=== PATIENT | male | born 1970 | race Caucasian/White ===

== ENCOUNTER 2019-01-04 09:50 | Observation (INO) | payer BC ==
[2019-01-04] MEDS ORDERED: Sodium Chloride 0.9% 10 ML FLUSH Syringe IV PRN (10:15)
[2019-01-04] MEDS ORDERED: Lasix 20 MG/2 ML IV SCH (10:30)
[2019-01-04] MEDS ORDERED: Lotensin 10 MG PO SCH (10:30)
[2019-01-04 10:54] LABS: Hematocrit 44.7 % (42-50); Hemoglobin 14.8 gm/dl (12.5-18.0); Mean Cell Volume 85.6 fl (78-100); Mean Corpuscular Hemoglobin 28.4 pg (26-32); Mean Corpuscular Hgb Concent. 33.1 g/dl (32-36); Mean Platelet Volume 10.1 fl (6-9.5); Platelet Count 255 K/mm3 (150-450); Red Blood Count 5.22 M/mm3 (4.1-5.6); White Blood Count 10.1 K/mm3 (4.0-10.5)
[2019-01-04 11:15] LABS: ALBUMIN 3.9 g/dL (3.5-5.0); BILIRUBIN,TOTAL 1.5 mg/dL (0.2-1.3); Calcium 9.4 mg/dL (8.4-10.2); Creatinine 1 2.34 mg/dL (0.66-1.25); Potassium 4.4 mmol/L (3.5-5.1); Total Protein 7.3 g/dL (6.3-8.2)
[2019-01-04 12:32] LABS: Appearance SLIGHTLY CLOUDY (CLEAR); Bilirubin NEGATIVE (NEGATIVE); Blood SMALL Ery/ul (0-5); Glucose NEGATIVE (NEGATIVE); Ketones NEGATIVE (NEGATIVE); Leukocyte Esterase NEGATIVE (NEGATIVE); Mucus SLIGHT /HPF (NEGATIVE); Nitrite NEGATIVE (NEGATIVE); Protein,Urine Dip >=500 (Negative); Specific Gravity 1.015 (1.005-1.025); Urobilinogen NEGATIVE mg/dL (0-1)
--- NOTE | 2019-01-04 13:13 | XRAY ---
Exam: Two-view chest from 01/04/2019. Comparison: None. Indication: 48-year-old male with hypertension/water retention. Findings: Upright PA and 2 lateral chest films are submitted for evaluation. The transverse heart size is borderline enlarged. There is moderate tortuosity of the mid descending thoracic aorta. The neha and mediastinal structures reveal no abnormal lymphadenopathy. There is slight vascular prominence within the neha. No pulmonary vascular redistribution to the upper lung garcia is seen. However, I believe there is a small amount of pleural fluid blunting the right lateral and posterior lung sulci. There also appears to be some mild transversely oriented subsegmental atelectasis within both posterior lung bases. No air space infiltrates or pneumothorax is seen. The left costophrenic angle appears unremarkable. Mild vertebral endplate spurring is seen within the lower thoracic and upper lumbar spine. There appears to be an old healed fracture deformity of the lateral aspect of the right fifth rib. Impression: 1. Borderline cardiomegaly, mild bilateral perihilar vascular prominence, with small right basilar pleural effusion. This could be due to mild fluid volume overload or mild CHF. Correlate clinically. 2. In addition, I believe there is some minimal subsegmental atelectasis at both posterior lung bases. No air space infiltrates are seen.
[2019-01-04] MEDS: Trandate 100 MG PO SCH (20:15)
[2019-01-04] MEDS: LASIX 20 MG PO SCH (20:15)
[2019-01-04] MEDS: Zestril 20 MG PO SCH (20:15)
[2019-01-04] MEDS ORDERED: Sodium Chloride 0.9% 1000 ML 1,000 ML ONE (21:10)
[2019-01-05] MEDS: Trandate 100 MG PO SCH ×2 (00:31→10:42)
[2019-01-05] MEDS: Sodium Chloride 0.9% 10 ML FLUSH Syringe IV SCH ×3 (00:31→08:37)
[2019-01-05 06:04] LABS: Hematocrit 41.6 % (42-50); Hemoglobin 13.4 gm/dl (12.5-18.0); Mean Cell Volume 87.4 fl (78-100); Mean Corpuscular Hemoglobin 28.2 pg (26-32); Mean Corpuscular Hgb Concent. 32.2 g/dl (32-36); Mean Platelet Volume 10.1 fl (6-9.5); Platelet Count 234 K/mm3 (150-450); Red Blood Count 4.76 M/mm3 (4.1-5.6); Red Cell Distribution Width 15.1 % (11.5-14.0); White Blood Count 8.4 K/mm3 (4.0-10.5)
[2019-01-05 06:46] LABS: ALBUMIN 3.5 g/dL (3.5-5.0); ANION GAP 13.6 MEQ/L (5-15); BILIRUBIN,TOTAL 1.4 mg/dL (0.2-1.3); Calcium 8.8 mg/dL (8.4-10.2); Creatinine 1 2.21 mg/dL (0.66-1.25); MAGNESIUM 2.2 mg/dL (1.6-2.3); Potassium 3.5 mmol/L (3.5-5.1); Total Protein 6.5 g/dL (6.3-8.2)
--- NOTE | 2019-01-05 08:58 | CONS ---
CONSULT DATE: 01/04/2019 REASON FOR CONSULT: Increased BUN and creatinine, increased blood pressure. HISTORY: The patient is a 48 year-old gentleman who had been diagnosed with hypertension ten years ago who has not been taking any medications, has not been seeing any physicians and has been lost to follow up. He was prescribed some medication ten years ago which caused him some side effect and he never took it after that and he never followed up with a doctor. Over the last few days he has been progressively getting more and more short of breath. He has progressively worsening leg edema. He thought he may have sleep apnea. He scheduled an appointment to see Dr. Goff in the office where his systolic blood pressure was found to be 235 so he was admitted to the hospital for further management. Drop Shipment Clerk service was consulted. On evaluation of his labs his protein dipstick showed urine protein of greater than 500 mg, BUN 34, creatinine 2.34, glomerular filtration rate 31 so nephrology service was consulted. Also his ProBNP was found to be 9260. He denies any vomiting, diarrhea or fever. He denies any chest pain. Complains of shortness of breath on minimal exertion. No present leg edema. He denies any NSAID use. He denies any hematuria, kidney stones or gout. REVIEW OF SYSTEMS: Some generalized swelling, generalized shortness of breath. Complains of some weakness but feeling well. All other systems were reviewed negative except as listed above. PAST MEDICAL HISTORY: Hypertension diagnosed greater than ten years ago untreated. MEDICATIONS: He does not take any home medication. ALLERGIES: NKDA. SOCIAL HISTORY: He denies any tobacco, alcohol or substance abuse. 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 He is and lives with his . FAMILY HISTORY: Father was on dialysis which was likely caused due to diabetes. PHYSICAL EXAMINATION: The patient is awake, alert and oriented and in some distress given his shortness of breath. VITAL SIGNS: Reviewed at bedside his systolic blood pressure is greater than 200. HEENT: Head - Atraumatic, normocephalic. Eyes - Positive icterus. No pallor. ENT: Mucosa moist. NECK: No JVD. Trachea midline. CHEST: Clear, occasional rhonchi and wheeze. No rales. Mild respiratory distress. CVS: Appears regular. 1+ peripheral edema bilaterally. ABDOMEN: Distended, morbidly obese, positive bowel sounds. Difficult to evaluate organomegaly due to morbid obesity. EXTREMITIES: 2+ peripheral edema bilaterally. No cyanosis. NEURO: Awake, alert, oriented, following commands. PSYCH: Appropriate mood and affect. SKIN: Warm and dry. LAB DATA AND TESTS: BUN 34, creatinine 2.34, estimated glomerular filtration rate 31.5, sodium 140, potassium 4.4. UA shows specific gravity 1.015. Urine protein greater than 500. Hemoglobin 14.8, white blood cell 10.1. Chest x-ray cardiomegaly, mild bilateral perihilar vascular prominence and some right basilar pleural effusion. ASSESSMENT AND PLAN: A 48 year-old gentleman with medical problems of: 1) Hypertensive urgency/emergency with accelerated hypertension uncontrolled. He likely has essential hypertension but given the new diagnosis some work up needs to be done for secondary causes. I will check for serum metanephrine, serum aldosterone/renin level, serum, cortisol free level. I agree with checking 24 hour urine protein to evaluate proteinuria. I will also check ultrasound of kidneys and echo to evaluate his cardiac status. I will start him on labetalol, lisinopril along with Lasix and monitor him closely. I counseled him about avoiding NSAID's and 2 gm sodium diet, weight loss and regular exercise. I will monitor his blood pressure closely. 2) Acute on chronic kidney disease. His baseline renal function is unclear. Right now he seems to have chronic kidney disease stage III/IV likely secondary to hypertension nephrosclerosis. He does have family history of chronic kidney disease as well. I will order work up for cause of renal dysfunction and work up for acute kidney injury and I will also check ultrasound of the kidneys to look for disease process. Check UA, urine random creatinine ratio and also check urine for creatinine along with protein. I will start him on lisinopril, labetalol and Lasix and monitor renal functions closely. I recommend avoiding NSAID's. Will give 2 gm sodium diet and continue to follow renal functions closely. 3) Congestive heart failure acute on chronic, decompensated. I will Lasix and lisinopril. Will order echo and follow closely. 4) Proteinuria likely secondary to hypertensive nephrosclerosis and chronic kidney disease. I agree with the evaluation and will order further testing. I will start him on lisinopril, recommend 2 gm sodium diet, and avoiding NSAID's. I will continue to follow him closely. Family members were updated at the bedside and all questions answered. I will continue to follow him closely. Thank you for the consultation on your patient. Please do not hesitate to contact me for any questions.
--- NOTE | 2019-01-05 10:09 | SSS ---
DISCHARGE DIAGNOSES: 1) HYPERTENSIVE EMERGENCY. 2) PITTING EDEMA. 3) RENAL INSUFFICIENCY. 4) MORBID OBESITY. HISTORY: The patient is a 48 year-old white male patient who presented to the office with complaints of just not feeling well, mild headache. He had noticed a large amount of swelling in his legs over the past couple of days. The patient was seen in the office and found to have a blood pressure greater than 200/140. He was admitted to the hospital. Consultation pending from renal. He was placed on Lotensin and labetalol and hydralazine and Lasix. With these treatments the patient diuresed nicely. His blood pressure dropped to 139/93 by 0400 hours the morning of 01/05/2019. PHYSICAL EXAMINATION: Revealed a very large, 48 year-old white male patient currently in no obvious distress. His blood pressure was noted to be 235/162 in the hospital with O2 saturation 95%, respiratory rate 24, heart rate 108 and temperature 98.5F. HEENT: Normocephalic, atraumatic. Pupils equal round reactive to light. Extraocular movements intact. Oropharynx is pink and moist. NECK: Supple without lymphadenopathy, thyromegaly or JVD. CHEST: Clear to auscultation. HEART: Regular rate and rhythm without murmurs, rubs or gallops. ABDOMEN: Soft. No palpable masses. EXTREMITIES: Revealed edema 1+ to the knees. NEUROLOGIC: The patient is alert and oriented x3. No focal deficits were noted. LAB DATA AND TESTS: Laboratory studies thus far have revealed a normal CBC. He had a fasting sugar of 115, BUN 34, creatinine 2.34. Electrolytes were normal. Total bilirubin slightly high at 1.5. His ProBNP level was 9,260. UA showed greater than 500 protein, specific gravity 1.015. The patient's x-rays showed borderline cardiomegaly and peripheral vascular prominence with small right basilar pleural effusion. No airspace infiltrates were seen. His EKG showed sinus rhythm with what appeared to be intraventricular conduction delay of right bundle branch type and mild ST-depression across the lateral leads. HOSPITAL COURSE: The patient has been seen by nephrology also. He made some additional changes in his medical therapy. He is now on Lotensin at 20 mg a day and he was given Labetalol 20 mg b.i.d. and Lasix 20 mg b.i.d. He has pending echocardiogram and renal ultrasound, bilateral venous Doppler of the lower extremities. He has multiple other tests pending ASHANTI, ANCA, complement and renin-aldosterone levels. He is also pending a 24 hour urine for creatinine clearance and protein. The patient is felt at this time otherwise once his studies have been accomplished to be able to discharge home on the above medications and follow up in the office in the next week and to follow up with printed circuit boards beveler also when next available. The patient will be off work for the rest of the week. He is already observing a low sodium diet. He is to return to the hospital if he has any further problems in the interim.
[2019-01-05] MEDS: LASIX 20 MG PO SCH (10:42)
[2019-01-05] MEDS: Zestril 20 MG PO SCH (10:43)
[2019-01-05 11:23] VITALS: BP 152/95; PULSE 80; O2SAT 98
--- NOTE | 2019-01-05 11:28 | XRAY ---
Indication: Bilateral swelling. Two-dimensional sonogram and color Doppler imaging of the major venous vessels of the left and right leg was performed. Comparison: None No thrombus seen in the examined deep venous vessels of the left and right leg including greater saphenous vein. Veins demonstrate normal compressibility. Venous waveforms are normal with and without augmentation. Impression: Left and right legs negative for DVT.
--- NOTE | 2019-01-05 11:30 | XRAY ---
Indication: Renal failure. Two-dimensional renal sonogram performed. Comparison: None Both kidneys normal in reniform shape with normal color perfusion. Right kidney measures 13.1 x 5.2 x 5.7 cm and the left measures 12.5 x 6.2 x 6.5 cm. There is a 2 cm left upper pole exophytic cyst. No solid renal mass, hydronephrosis, or perinephric fluid. Cortical medullary differentiation preserved without cortical thinning. Images of the mildly distended urinary bladder are unremarkable. Normal bilateral ureteral jets. Impression: Left renal cyst. Remaining renal sonogram is negative.
[2019-01-05 13:17] LABS: 24 HR TOT. PROTEIN CALCULATION 2.296 GM/DAY (0.04-0.15)
[2019-01-05 14:14] LABS: Appearance CLEAR (CLEAR); Bilirubin NEGATIVE (NEGATIVE); Blood SMALL Ery/ul (0-5); Glucose NEGATIVE (NEGATIVE); Hyaline Casts 0-2 /LPF (0-2); Ketones NEGATIVE (NEGATIVE); Leukocyte Esterase NEGATIVE (NEGATIVE); Nitrite NEGATIVE (NEGATIVE); Protein,Urine Dip 100 (Negative); Specific Gravity 1.016 (1.005-1.025); Urobilinogen 2 mg/dL (0-1)
[2019-01-05 14:26] LABS: Creatinine Urine 151.1 mg/dL
[2019-01-05 14:40] LABS: Malb/Crea Ratio 262.2
[2019-01-06 06:06] LABS: COMPLEMENT C3 116 mg/dL (88-201); COMPLEMENT C4 31 mg/dL (10-40)
[2019-01-06 11:40] LABS: DNA Double-Stranded Ab-IgG <1 IU/mL (0-4)
[2019-01-06 18:15] LABS: ANA Pattern Interp Detail See Result Note:
== END 2019-01-05 14:30 | disposition home or self-care (01) ==
LOC: MED SURG 09:53
PROVIDERS: ADMIT Family Medicine; ATTEND Family Medicine
DX: I16.1 Hypertensive emergency (principal); R60.9 Edema, unspecified; E66.01 Morbid (severe) obesity due to excess calories; Z68.41 Body mass index [BMI] 40.0-44.9, adult; I12.9 Hypertensive chronic kidney disease with stage 1 through stage 4 chronic kidney disease, or unspecified chronic kidney disease; N18.9 Chronic kidney disease, unspecified; N17.9 Acute kidney failure, unspecified; I50.9 Heart failure, unspecified; R80.9 Proteinuria, unspecified
CPT/HCPCS: 36415; 71046; 76770; 80053; 81001; 82043; 82088; 82530; 82570; 83735; 83835; 83880; 84156; 84165; 84244; 84545; 85027; 86038; 86039; 86160; 86225; 86255; 86256; 86334; 87086; 93005; 93268; 93306; 93970; J1940; A9270-GY; G0378

== ENCOUNTER 2019-08-01 08:01 | Emergency (ER) | payer BC ==
--- NOTE | 2019-08-01 08:23 | ERPHSYRPT ---
- History of Present Illness Time Seen by Provider: 08/01/19 08:10 Source: patient, EMS Exam Limitations: no limitations Patient Subjective Stated Complaint: Pt states "I was standing there for roll call and just fell out. I was on my feet then on the floor." Triage Nursing Assessment: PT presented alert and oriented X 3, skin pwd pt arrived on long spine board with c collar. PT able to speak in clear full sentences pt in no apprent respiraotory distress. Physician History: 49-year-old obese white male with a history of hypertension. The patient is on several medications for his blood pressure including Spironolactone, labetalol, hydralazine, lisinopril, clonidine, amlodipine. Patient sees Dr. Guerrero Jimenes as his civil attorney. Patient has never had a syncopal episode as he did this morning. However, when the patient does not eat and takes his blood pressure medications, he does initially feel dizzy in the morning until he eats. Patient did not eat this morning. Patient denies shortness of breath he denies chest pain, he denies abdominal pain. Patient has had no flulike symptoms. Patient was brought in by EMS. He is in a c-collar and on a backboard. Patient denies any back pain. There is a posterior scalp laceration per EMS. Patient states his last tetanus shot was approximately 2 years ago. Patient's blood sugar was 114. Witnessed: bystander Prior Episodes: single episode today Timing/Duration: today Precipitating Factors: other (Patient did not eat and took his blood pressure medication) Context: standing Loss of Consciousness: brief (seconds) Charcter of event(s): felt faint Allergies/Adverse Reactions: No Known Drug Allergies Allergy (Verified 08/01/19 08:08) Home Medications: Amlodipine Besylate [Norvasc] 10 mg PO DAILY 08/01/19 [History] Atorvastatin Calcium [Lipitor] 20 mg PO DAILY 08/01/19 [History] Clonidine HCl [Catapres] 0.3 mg PO TID 08/01/19 [History] Furosemide [Lasix] 20 mg PO DAILY 08/01/19 [History] Hydralazine HCl 100 mg PO DAILY 08/01/19 [History] Labetalol HCl [Trandate] 200 mg PO DAILY 08/01/19 [History] Lisinopril 20 mg [Zestril 20 MG] 80 mg PO DAILY 08/01/19 [History] Sildenafil Citrate [Viagra] 50 mg PO DAILY PRN 08/01/19 [History] Spironolactone 25 mg PO DAILY 08/01/19 [History] Hx Tetanus, Diphtheria Vaccination/Date Given: Yes Hx Influenza Vaccination/Date Given: No Hx Pneumococcal Vaccination/Date Given: No Immunizations Up to Date: Yes - Past Medical History Pertinent Past Medical History: Yes Neurological History: No Pertinent History ENT History: No Pertinent History Cardiac History: High Cholesterol, Hypertension Respiratory History: Asthma Endocrine Medical History: No Pertinent History Musculoskeletal History: No Pertinent History GI Medical History: No Pertinent History History: No Pertinent History Psycho-Social History: No Pertinent History Male Reproductive Disorders: No Pertinent History Other Medical History: 2 staph infections - Past Surgical History Past Surgical History: Yes Neuro Surgical History: No Pertinent History Cardiac: No Pertinent History Respiratory: No Pertinent History Gastrointestinal: No Pertinent History, Other Genitourinary: No Pertinent History Musculoskeletal: Other Male Surgical History: No Pertinent History Other Surgical History: cyst on forehead removed 2005, colonoscopy - 2006 - Social History Smoking Status: Never smoker Exposure to second hand smoke: Yes Drug Use: none Patient Lives Alone: No - Review of Systems Constitutional: No Symptoms Eyes: No Symptoms Ears, Nose, & Throat: No Symptoms Respiratory: No Symptoms Cardiac: No Symptoms Abdominal/Gastrointestinal: No Symptoms Genitourinary Symptoms: No Symptoms Musculoskeletal: No Symptoms Skin: No Symptoms Neurological: No Symptoms Psychological: No Symptoms Endocrine: No Symptoms Hematologic/Lymphatic: No Symptoms Immunological/Allergic: No Symptoms All Other Systems: Reviewed and Negative Physical Exam - Nursing Vital Signs Nursing Vital Signs: Initial Vital Signs Temperature 98.1 F 08/01/19 08:02 Pulse Rate 61 08/01/19 08:02 Respiratory Rate 20 08/01/19 08:02 Blood Pressure 170/93 08/01/19 08:02 O2 Sat by Pulse Oximetry 100 08/01/19 08:02 Pain Scale Pain Intensity 0 - Kiersten Coma Scale Best Eye Response (Cressey): (4) open spontaneously Best Verbal Response (Kiersten): (5) oriented Best Motor Response (Cressey): (6) obeys commands Kiersten Total: 15 - Physical Exam General Appearance: no apparent distress, alert, anxiety, obese Eye Exam: bilateral eye: normal inspection, PERRL, EOMI Ears, Nose, Throat Exam: normal ENT inspection, moist mucous membranes Neck Exam: normal inspection, non-tender Respiratory: normal breath sounds, lungs clear, airway intact, No chest tenderness, No respiratory distress Cardiovascular: regular rate/rhythm, normal heart sounds, normal peripheral pulses Gastrointestinal: soft, normal bowel sounds, No tenderness Rectal Exam: not done Back Exam: normal inspection, normal range of motion, No CVA tenderness, No vertebral tenderness Extremity Exam: normal inspection, normal range of motion 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, 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 Exam: normal hearing, normal speech, PERRL, tongue midline Coordination/Gait: normal finger to nose Motor/Sensory: no motor deficit Skin Exam: normal color, warm, dry SpO2 Interpretation: normal SpO2: 100 O2 Delivery: Room Air Procedures - Laceration/Wound Repair Posterior Occipital Wound Location: head Wound Length (cm): 4 Wound's Depth, Shape: superficial, linear ("V" shaped) Wound Explored: to base Hibiclens Prep: Yes Anesthesia: topical Wound Repaired With: Linda (seven) Sterile Dressing Applied?: Yes - Course Nursing assessment & vital signs reviewed: Yes EKG Interpreted by Me: RATE (56), Sinus Rhythm, NORMAL AXIS, NORMAL INTERVALS, NORMAL QRS, Right Bundle Branch Block, Other (no change from ekg dated 01/25/19) Ordered Tests: Active Orders 24 hr Category Date Time Status Beam Carrier Hauler Pusher STAT Care 08/01/19 08:30 Active Clean Catch Urine Specimen STAT Care 08/01/19 08:29 Active EKG-ER Only STAT Care 08/01/19 08:29 Active IV Insertion STAT Care 08/01/19 08:29 Active Pulse Oximetry (ED) STAT Care 08/01/19 08:29 Active CERVICAL SPINE WO CONTRAST [CT] Stat Exams 08/01/19 08:30 Completed HEAD WITHOUT CONTRAST [CT] Stat Exams 08/01/19 08:30 Completed CBC W DIFF Stat Lab 08/01/19 08:53 Completed CMP Stat Lab 08/01/19 08:53 Completed UA W/RFX UR CULTURE Stat Lab 08/01/19 08:30 Uncollected Urine Triage Profile Stat Lab 08/01/19 08:30 Uncollected Medication Summary Discontinued Medications Generic Name Dose Route Start Last Admin Trade Name Freq PRN Reason Stop Dose Admin Sodium Chloride 1,000 mls @ 999 mls/hr 08/01/19 08:29 08/01/19 08:49 Sodium Chloride 0.9% 1000 Ml IV 08/01/19 09:29 999 mls/hr .Q1H1M STA Administration Sodium Chloride Confirm 08/01/19 08:39 Sodium Chloride 0.9% 1000 Ml Administered 08/01/19 08:40 Dose 1,000 mls @ ud .ROUTE .STK-MED ONE Lidocaine/Prilocaine 2.5 gm 08/01/19 09:25 08/01/19 09:34 Emla Cream 5 Gm TP 08/01/19 09:26 2.5 gm STAT ONE Administration Lidocaine/Prilocaine Confirm 08/01/19 09:26 Emla Cream 5 Gm Administered 08/01/19 09:27 Dose 5 gm TP .STK-MED ONE Lab/Rad Data: Laboratory Result Diagrams 08/01/19 08:53 08/01/19 08:53 Laboratory Results 08/01/19 08/01/19 Range/Units 08:53 08:53 WBC 7.3 (4.0-10.5) K/mm3 RBC 4.64 (4.1-5.6) M/mm3 Hgb 14.2 (12.5-18.0) gm/dl Hct 40.6 L (42-50) % MCV 87.5 (78-100) fl MCH 30.6 (26-32) pg MCHC 35.0 (32-36) g/dl RDW 12.6 (11.5-14.0) % Plt Count 244 (150-450) K/mm3 MPV 9.1 (7.5-11.0) fl Gran % 70.5 H (36.0-66.0) % Eos # (Auto) 0.34 (0-0.5) Absolute Lymphs (auto) 1.19 (1.0-4.6) Absolute Monos (auto) 0.59 (0.0-1.3) Lymphocytes % 16.3 L (24.0-44.0) % Monocytes % 8.1 (0.0-12.0) % Eosinophils % 4.7 (0.00-5.0) % Basophils % 0.4 (0.0-0.4) % Absolute Granulocytes 5.16 (1.4-6.9) Basophils # 0.03 (0-0.4) Sodium 138 (137-145) mmol/L Potassium 4.7 (3.5-5.1) mmol/L Chloride 106 (98-107) mmol/L Carbon Dioxide 23 (22-30) mmol/L Anion Gap 13.7 (5-15) MEQ/L BUN 37 H (9-20) mg/dL Creatinine 1.92 H (0.66-1.25) mg/dL Estimated GFR 39.4 ML/MIN Glucose 120 H (74-106) mg/dL Calcium 9.6 (8.4-10.2) mg/dL Total Bilirubin 0.70 (0.2-1.3) mg/dL AST 27 (17-59) U/L ALT 33 (0-50) U/L Alkaline Phosphatase 77 (38-126) U/L Serum Total Protein 8.1 (6.3-8.2) g/dL Albumin 4.6 (3.5-5.0) g/dL - Progress Progress: improved, re-examined Progress Note: 08/01/19 09:18 CAT scan of the cervical spine reveals no acute fracture or subluxation 08/01/19 09:39 The CAT scan of the head reveals the roof of the left orbit nondepressed fracture with small amount of left frontal pneumocephalus. Minimal left frontal acute parenchymal and subdural hemorrhage. There is bilateral extraconal retro-orbital air left greater than right. The left eyelid soft tissue shows swelling with preseptal air. Occipital scalp reveals a hematoma with a nondepressed fracture At 0925 I spoke with [facility] trauma surgeon Dr. Edwards The patient's history, condition, laboratory data and x-ray findings with him. Accepts the patient to be transferred to the emergency department at [facility] Counseled pt/family regarding: lab results, diagnosis, need for follow-up, rad results - Departure Departure Disposition: Home, Transfer Clinical Impression: Occipital scalp laceration, Left orbit fracture, Subdural hemorrhage, Pneumocephalus, traumatic, Occipital fracture Condition: Stable Critical Care Time: No Referrals: FLORIDA NOBLE [Primary Care Provider] -
[2019-08-01] MEDS ORDERED: Sodium Chloride 0.9% 1000 ML 1,000 ML IV STA (08:29)
[2019-08-01] MEDS ORDERED: Sodium Chloride 0.9% 1000 ML 1,000 ML ONE (08:39)
[2019-08-01 08:56] LABS: Absolute Neutrophil Ct (ANC) 5.16 (1.4-6.9); BASOPHIL % 0.4 % (0.0-0.4); Basophil (Absolute #) 0.03 (0-0.4); Eosinophil % 4.7 % (0.00-5.0); Eosinophil (Absolute #) 0.34 (0-0.5); Hematocrit 40.6 % (42-50); Hemoglobin 14.2 gm/dl (12.5-18.0); Lymphocyte (Absolute #) 1.19 (1.0-4.6); Lymphocytes % 16.3 % (24.0-44.0); Mean Cell Volume 87.5 fl (78-100); Mean Corpuscular Hemoglobin 30.6 pg (26-32); Mean Platelet Volume 9.1 fl (7.5-11.0); Monocyte (Absolute #) 0.59 (0.0-1.3); Monocytes % 8.1 % (0.0-12.0); Neutrophil % 70.5 % (36.0-66.0); Platelet Count 244 K/mm3 (150-450); Red Blood Count 4.64 M/mm3 (4.1-5.6); Red Cell Distribution Width 12.6 % (11.5-14.0); White Blood Count 7.3 K/mm3 (4.0-10.5)
[2019-08-01 09:05] LABS: ALBUMIN 4.6 g/dL (3.5-5.0); ANION GAP 13.7 MEQ/L (5-15); BILIRUBIN,TOTAL 0.7 mg/dL (0.2-1.3); Calcium 9.6 mg/dL (8.4-10.2); Creatinine 1 1.92 mg/dL (0.66-1.25); Potassium 4.7 mmol/L (3.5-5.1); Total Protein 8.1 g/dL (6.3-8.2)
[2019-08-01 09:22] VITALS: BP 157/88
[2019-08-01] MEDS ORDERED: EMLA Cream 5 GM TP ONE ×2 (09:25→09:26)
--- NOTE | 2019-08-01 09:26 | XRAY ---
Indication: Head injury following fall. Syncope. Multiple contiguous axial images obtained through the head without contrast. Comparison: None There is moderate left eyelid soft-tissue swelling with preseptal air collection. Tiny extraconal retro-orbital air bubbles seen, left greater than right. Suspect nondepressed lamina papyracea fractures bilaterally. Also suspect tiny nondepressed fracture involving the roof of the left orbit with left frontal pneumocephalus measuring 0.4 x 2.3 x 2.6 cm in greatest AP, transverse, and CC projections. There is moderate opacification of both ethmoid sinuses either blood versus sinusitis. Inferior maxillary sinuses demonstrates mild mucosal thickening bilaterally. Inferior left frontal lobe demonstrates tiny parenchymal hemorrhage with tiny subdural hematoma without mass effect. No other acute intracranial hemorrhage, extra-axial fluid collection, or mass effect. Fourth ventricle is midline without hydrocephalus. Diallo-white matter differentiation preserved. Mild right occipital scalp hematoma with underlying nondepressed occipital fracture. Mastoid air cells are pneumatized and clear. Impression: 1. Roof of the left orbit demonstrates nondepressed fracture with small amount of left frontal pneumocephalus. Also minimal left frontal acute parenchymal and subdural hemorrhage. 2. Suspect nondepressed fractures of the lamina papyracea bilaterally with extraconal retro-orbital air, left greater than right. 3. Left eyelid soft tissue swelling with preseptal air. 4. Right occipital scalp hematoma with nondepressed fracture. 5. Opacification of both ethmoid sinuses either related to trauma versus sinusitis. Additional finding mild bilateral maxillary sinus disease. Comment: Telephone report was given to ordering clinician, Dr. Angel at 0910 hrs. on August 01, 2019.
--- NOTE | 2019-08-01 09:29 | XRAY ---
Indication: Head injury following fall. Syncope. Multiple contiguous axial images obtained through the cervical spine. Sagittal and coronal reformatted images obtained. Comparison: None Axial images negative for acute fracture, suspicious bony lesions, or spinal canal stenosis. Mild C6-C7 degenerative endplate spurring with left foraminal narrowing. Minimal/mild multilevel bilateral degenerative facet hypertrophy. Sagittal and coronal reformatted images demonstrates cervical lordotic straightening, positional versus paraspinal spasm. Vertebral body heights/disc spaces maintained. No acute compression fracture, subluxation, or jumped facet. Normal appearing craniocervical junction. Visualized noncontrasted soft tissues including lung apices unremarkable. CT head reported separately. Impression: Cervical lordotic straightening, positional versus paraspinal spasm. Negative for acute fracture/subluxation. Mild C6-C7 degenerative changes. Comment: Telephone report was given to ordering clinician, Dr. Angel at 0910 hrs. on August 01, 2019.
[2019-08-01 10:04] VITALS: PULSE 50; O2SAT 98
[2019-08-01 10:20] LABS: Appearance CLEAR (CLEAR); Bilirubin NEGATIVE (NEGATIVE); Blood NEGATIVE Ery/ul (0-5); Glucose NEGATIVE (NEGATIVE); Ketones NEGATIVE (NEGATIVE); Leukocyte Esterase NEGATIVE (NEGATIVE); Mucus SLIGHT /HPF (NEGATIVE); Nitrite NEGATIVE (NEGATIVE); Protein,Urine Dip NEGATIVE (Negative); Specific Gravity 1.014 (1.005-1.025); Urobilinogen NEGATIVE mg/dL (0-1); WBC 0-2 /HPF (0-5)
[2019-08-01 10:34] LABS: Amphetamine,Urine NEGATIVE (NEGATIVE); Barbiturate,Urine NEGATIVE (NEGATIVE); Benzodiazepine,Urine NEGATIVE (NEGATIVE); Cocaine,Urine NEGATIVE (NEGATIVE); Methadone,Urine NEGATIVE (NEGATIVE); Opiate,Urine NEGATIVE (NEGATIVE); PCP,Urine NEGATIVE (NEGATIVE); THC,Urine NEGATIVE (NEGATIVE)
== END 2019-08-01 10:19 | disposition short-term general hospital (02) ==
LOC: ED 08:01
DX: S01.01XA Laceration without foreign body of scalp, initial encounter (principal); S02.85XA Fracture of orbit, unspecified, initial encounter for closed fracture; S06.5X9A Traumatic subdural hemorrhage with loss of consciousness of unspecified duration, initial encounter; G93.89 Other specified disorders of brain; S02.118A Other fracture of occiput, unspecified side, initial encounter for closed fracture; I10 Essential (primary) hypertension; Z79.899 Other long term (current) drug therapy; R55 Syncope and collapse; E78.00 Pure hypercholesterolemia, unspecified
CPT/HCPCS: 12002; 36415; 70450; 72125; 80053; 80307; 81001; 85025; 93005; 93041; 94760; 96360; 99285; L0172; A9270-GY

== ENCOUNTER 2020-05-02 11:49 | Emergency (ER) | payer BC ==
[2020-05-02 11:59] VITALS: O2SAT 99
--- NOTE | 2020-05-02 12:05 | ERPHSYRPT ---
- History of Present Illness Time Seen by Provider: 05/02/20 12:05 Source: patient Exam Limitations: no limitations Patient Subjective Stated Complaint: Pt states "I was just sitting there at work and all of a sudden my heart started to pound, my face went flush and I just knew my blood pressure was up." Triage Nursing Assessment: Pt presented alert and oriented X 3, skin pwd Pt ambulates with an upright steady gait, able to speak in clear full sentences pt in no apaprent respiratory distress. Physician History: This is an obese 50-year-old white male with a history of hypertension on multiple medications, chronic renal insufficiency, who presents with concern of elevated blood pressure. Patient was at work and could feel his pulse in his neck. He did not take his blood pressure at work. Patient opted to come to the emergency room for evaluation. Upon arrival into the emergency department, his initial reading of blood pressure was 160/95. Soon after, a second reading was 140/75. Patient took all his morning medications today. He has 2 other sets of medications he will be taking throughout the day. Patient denies shortness of breath he denies chest pain. Patient sees Dr. 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 Duran. Timing/Duration: today Severity: mild Associated Symptoms: denies symptoms Allergies/Adverse Reactions: No Known Drug Allergies Allergy (Verified 08/01/19 08:08) Home Medications: Amlodipine Besylate [Norvasc] 10 mg PO DAILY 08/01/19 [History] Atorvastatin Calcium [Lipitor] 20 mg PO DAILY 08/01/19 [History] Clonidine HCl [Catapres] 0.3 mg PO TID 08/01/19 [History] Furosemide [Lasix] 20 mg PO DAILY 08/01/19 [History] Hydralazine HCl 100 mg PO DAILY 08/01/19 [History] Lisinopril 20 mg [Zestril 20 MG] 80 mg PO DAILY 08/01/19 [History] Spironolactone 25 mg PO DAILY 08/01/19 [History] Hx Tetanus, Diphtheria Vaccination/Date Given: No Hx Influenza Vaccination/Date Given: No Hx Pneumococcal Vaccination/Date Given: No Immunizations Up to Date: Yes Travel Risk - International Travel Have you traveled outside of the country in past 3 weeks: No - Coronavirus Screening Are you exhibiting any of the following symptoms?: No Close contact with a COVID-19 positive Pt in past 14-21 Days: No - Review of Systems Constitutional: No Symptoms Eyes: No Symptoms Ears, Nose, & Throat: No Symptoms Respiratory: No Symptoms Cardiac: Palpitations Abdominal/Gastrointestinal: No Symptoms Genitourinary Symptoms: No Symptoms Musculoskeletal: No Symptoms Skin: No Symptoms Neurological: No Symptoms Psychological: No Symptoms Endocrine: No Symptoms Hematologic/Lymphatic: No Symptoms Immunological/Allergic: No Symptoms All Other Systems: Reviewed and Negative - Past Medical History Pertinent Past Medical History: Yes Neurological History: No Pertinent History ENT History: No Pertinent History Cardiac History: High Cholesterol, Hypertension Respiratory History: Asthma Endocrine Medical History: No Pertinent History Musculoskeletal History: No Pertinent History GI Medical History: No Pertinent History History: No Pertinent History Psycho-Social History: No Pertinent History Male Reproductive Disorders: No Pertinent History Other Medical History: 2 staph infections - Past Surgical History Past Surgical History: Yes Neuro Surgical History: No Pertinent History Cardiac: No Pertinent History Respiratory: No Pertinent History Gastrointestinal: No Pertinent History, Other Genitourinary: No Pertinent History Musculoskeletal: Other Male Surgical History: No Pertinent History Other Surgical History: cyst on forehead removed 2005, colonoscopy - 2006 - Social History Smoking Status: Never smoker Exposure to second hand smoke: Yes Drug Use: none Patient Lives Alone: No - Nursing Vital Signs Nursing Vital Signs: Initial Vital Signs Temperature 98.6 F 05/02/20 11:54 Pulse Rate 95 H 05/02/20 11:54 Respiratory Rate 20 05/02/20 11:54 Blood Pressure 158/95 05/02/20 11:54 O2 Sat by Pulse Oximetry 99 05/02/20 11:54 Pain Scale Pain Intensity 0 - Physical Exam General Appearance: no apparent distress, alert, anxiety Eye Exam: PERRL/EOMI, eyes nml inspection Ears, Nose, Throat Exam: normal ENT inspection, moist mucous membranes Neck Exam: normal inspection, non-tender, supple, full range of motion Respiratory Exam: normal breath sounds, lungs clear, airway intact, No chest tenderness, No respiratory distress Cardiovascular Exam: regular rate/rhythm, normal heart sounds, normal peripheral pulses Gastrointestinal/Abdomen Exam: soft, normal bowel sounds, No tenderness Rectal Exam: not done Back Exam: normal inspection, normal range of motion, No CVA tenderness, No vertebral tenderness Extremity Exam: normal inspection, normal range of motion, pelvis stable Neurologic Exam: alert, oriented x 3, cooperative, program manager slp II-XII nml as tested, normal mood/affect, nml cerebellar function, nml station & gait, sensation nml Skin Exam: normal color, warm, dry Lymphatic Exam: No adenopathy SpO2 Interpretation: normal SpO2: 99 O2 Delivery: Room Air - Course Nursing assessment & vital signs reviewed: Yes EKG Interpreted by Me: RATE (64), Sinus Rhythm, NORMAL AXIS, NORMAL INTERVALS, NORMAL QRS, Right Bundle Branch Block, NORMAL ST-T, Other (There is improvement on today's EKG over EKG performed on 08/01/2019. There is persistent right bundle branch block.) Ordered Tests: Active Orders 24 hr Category Date Time Status Card Cutter STAT Care 05/02/20 12:22 Active EKG-ER Only STAT Care 05/02/20 12:21 Active IV Insertion STAT Care 05/02/20 12:21 Active Pulse Oximetry (ED) STAT Care 05/02/20 12:21 Active CBC W DIFF Stat Lab 05/02/20 12:34 Completed CMP Stat Lab 05/02/20 12:34 Completed MAGNESIUM Stat Lab 05/02/20 12:34 Completed TROPONIN Q3H Lab 05/02/20 12:34 Completed TROPONIN Q3H Lab 05/02/20 15:30 Ordered TROPONIN Q3H Lab 05/02/20 18:30 Ordered TROPONIN Q3H Lab 05/02/20 21:30 Ordered TROPONIN Q3H Lab 05/03/20 00:30 Ordered Lab/Rad Data: Laboratory Result Diagrams 05/02/20 12:34 05/02/20 12:34 Laboratory Results 05/02/20 05/02/20 05/02/20 Range/Units 12:34 12:34 12:34 WBC 5.7 (4.0-10.5) K/mm3 RBC 4.79 (4.1-5.6) M/mm3 Hgb 15.2 (12.5-18.0) gm/dl Hct 41.8 L (42-50) % MCV 87.3 (78-100) fl MCH 31.7 (26-32) pg MCHC 36.4 H (32-36) g/dl RDW 12.3 (11.5-14.0) % Plt Count 217 (150-450) K/mm3 MPV 9.2 (7.5-11.0) fl Gran % 66.2 H (36.0-66.0) % Eos # (Auto) 0.15 (0-0.5) Absolute Lymphs (auto) 1.18 (1.0-4.6) Absolute Monos (auto) 0.57 (0.0-1.3) Lymphocytes % 20.8 L (24.0-44.0) % Monocytes % 10.0 (0.0-12.0) % Eosinophils % 2.6 (0.00-5.0) % Basophils % 0.4 (0.0-0.4) % Absolute Granulocytes 3.76 (1.4-6.9) Basophils # 0.02 (0-0.4) Sodium 136 L (137-145) mmol/L Potassium 4.5 (3.5-5.1) mmol/L Chloride 106 (98-107) mmol/L Carbon Dioxide 21 L (22-30) mmol/L Anion Gap 13.8 (5-15) MEQ/L BUN 33 H (9-20) mg/dL Creatinine 1.93 H (0.66-1.25) mg/dL Estimated GFR 39.1 ML/MIN Glucose 124 H (74-106) mg/dL Calcium 9.5 (8.4-10.2) mg/dL Magnesium 2.2 (1.6-2.3) mg/dL Total Bilirubin 0.70 (0.2-1.3) mg/dL AST 29 (17-59) U/L ALT 40 (0-50) U/L Alkaline Phosphatase 77 (38-126) U/L Troponin I < 0.012 (0.000-0.034) ng/mL Serum Total Protein 8.4 H (6.3-8.2) g/dL Albumin 4.6 (3.5-5.0) g/dL - Progress Progress: improved Progress Note: 05/02/20 13:11 Patient denies chest pain and denies shortness of breath. Counseled pt/family regarding: lab results, diagnosis, need for follow-up - Departure Departure Disposition: Home Clinical Impression: Hypertension Condition: Stable Critical Care Time: No Referrals: FL[place] NOBLE [Primary Care Provider] - Additional Instructions: Take your medication as prescribed. Follow-up with your prescribing doctors tomorrow for further instructions and management.
[2020-05-02 12:44] LABS: Absolute Neutrophil Ct (ANC) 3.76 (1.4-6.9); BASOPHIL % 0.4 % (0.0-0.4); Basophil (Absolute #) 0.02 (0-0.4); Eosinophil % 2.6 % (0.00-5.0); Eosinophil (Absolute #) 0.15 (0-0.5); Hematocrit 41.8 % (42-50); Hemoglobin 15.2 gm/dl (12.5-18.0); Lymphocyte (Absolute #) 1.18 (1.0-4.6); Lymphocytes % 20.8 % (24.0-44.0); Mean Cell Volume 87.3 fl (78-100); Mean Corpuscular Hemoglobin 31.7 pg (26-32); Mean Corpuscular Hgb Concent. 36.4 g/dl (32-36); Mean Platelet Volume 9.2 fl (7.5-11.0); Monocyte (Absolute #) 0.57 (0.0-1.3); Neutrophil % 66.2 % (36.0-66.0); Platelet Count 217 K/mm3 (150-450); Red Blood Count 4.79 M/mm3 (4.1-5.6); Red Cell Distribution Width 12.3 % (11.5-14.0); White Blood Count 5.7 K/mm3 (4.0-10.5)
[2020-05-02 12:54] LABS: ALBUMIN 4.6 g/dL (3.5-5.0); ANION GAP 13.8 MEQ/L (5-15); BILIRUBIN,TOTAL 0.7 mg/dL (0.2-1.3); Calcium 9.5 mg/dL (8.4-10.2); Creatinine 1 1.93 mg/dL (0.66-1.25); EST GLOMERULAR FILTRATION RATE 39.1 ML/MIN; MAGNESIUM 2.2 mg/dL (1.6-2.3); Potassium 4.5 mmol/L (3.5-5.1); Total Protein 8.4 g/dL (6.3-8.2)
[2020-05-02 13:25] VITALS: BP 120/61; PULSE 60
== END 2020-05-02 13:25 | disposition home or self-care (01) ==
LOC: ED 11:49
DX: I10 Essential (primary) hypertension (principal); Z79.899 Other long term (current) drug therapy; R00.2 Palpitations
CPT/HCPCS: 36000; 36415; 80053; 83735; 84484; 85025; 93005; 93041; 94760; 99284

== ENCOUNTER 2024-01-20 20:48 | Emergency (ER) | payer BC ==
--- NOTE | 2024-01-20 20:51 | ERPHSYRPT ---
- History of Present Illness Time Seen by Provider: 01/20/24 20:51 Source: patient, family Exam Limitations: no limitations Physician History: This is a morbidly obese white male patient of Dr. Goff (PCP), Dr. Duran (nephrology) and Dr. Guerrero Jimenes (cardiology) and presents with concern of hypertension as well as a small scab that the patient scratched off and despite ice and pressure on the skin overlying the left bicep, it continues to ooze slowly. Once this patient saw that occurring, he stated that he started to feel weird and he felt his blood pressure was increasing. His heart was racing and pounding. Patient has a history of hypertension and is on 6 different medications that lower his blood pressure. He has chronic renal disease. Patient has a history of asthma and hyperlipidemia. He has never been diagnosed with coronary artery disease. Patient's initial blood pressure on arrival to the emergency department was 174/88. The second reading, without any intervention, decreased to 148/85. States he has no specific shortness of breath or chest pain Timing/Duration: today Severity: mild Associated Symptoms: denies symptoms, No shortness of breath, No chest pain Allergies/Adverse Reactions: No Known Drug Allergies Allergy (Verified 01/20/24 21:15) Home Medications: Amlodipine Besylate [Norvasc] 10 mg PO DAILY 08/01/19 [History] Atorvastatin Calcium [Lipitor] 20 mg PO DAILY 08/01/19 [History] Furosemide [Lasix] 5 mg PO DAILY 08/01/19 [History] Lisinopril 20 mg [Zestril 20 MG] 40 mg PO DAILY 08/01/19 [History] Spironolactone 25 mg PO DAILY 08/01/19 [History] Sodium Zirconium Cyclosilicate [Lokelma] 1 packet PO UD 01/20/24 [History] Hx Tetanus, Diphtheria Vaccination/Date Given: No Hx Influenza Vaccination/Date Given: No Hx Pneumococcal Vaccination/Date Given: No Travel Risk - International Travel Have you traveled outside of the country in past 3 weeks: No - Emerging Infectious Disease Are you exhibiting symptoms associated with any current EIDs: No - Review of Systems Constitutional: No Symptoms Eyes: No Symptoms Ears, Nose, & Throat: No Symptoms Respiratory: No Symptoms Cardiac: Palpitations Abdominal/Gastrointestinal: No Symptoms Genitourinary Symptoms: No Symptoms Musculoskeletal: No Symptoms Skin: Other (Punctate lesion skin overlying left bicep mild bruise at home. Pressure and ice did not seem to slow the oozing down) Neurological: No Symptoms Psychological: No Symptoms Endocrine: No Symptoms Hematologic/Lymphatic: No Symptoms Immunological/Allergic: No Symptoms All Other Systems: Reviewed and Negative - Past Medical History Pertinent Past Medical History: Yes Neurological History: No Pertinent History ENT History: No Pertinent History Cardiac History: High Cholesterol, Hypertension Respiratory History: Asthma Endocrine Medical History: No Pertinent History Musculoskeletal History: No Pertinent History GI Medical History: No Pertinent History History: No Pertinent History Psycho-Social History: No Pertinent History Male Reproductive Disorders: No Pertinent History Other Medical History: 2 staph infections - Past Surgical History Past Surgical History: Yes Neuro Surgical History: No Pertinent History Cardiac: No Pertinent History Respiratory: No Pertinent History Gastrointestinal: No Pertinent History, Other Genitourinary: No Pertinent History Musculoskeletal: Other Male Surgical History: No Pertinent History Other Surgical History: cyst on forehead removed 2005, colonoscopy - 2006 - Social History Smoking Status: Never smoker Exposure to second hand smoke: Yes Drug Use: none Patient Lives Alone: No - Nursing Vital Signs Nursing Vital Signs: Initial Vital Signs Temperature 99.0 F 01/20/24 20:56 Pulse Rate 87 01/20/24 20:56 Respiratory Rate 18 01/20/24 20:56 Blood Pressure 174/88 01/20/24 20:56 O2 Sat by Pulse Oximetry 97 01/20/24 20:56 Pain Scale Pain Intensity 0 - Physical Exam General Appearance: no apparent distress, alert, anxiety Eye Exam: PERRL/EOMI, eyes nml inspection Ears, Nose, Throat Exam: normal ENT inspection, moist mucous membranes Neck Exam: normal inspection, non-tender, supple, full range of motion Respiratory Exam: normal breath sounds, lungs clear, airway intact, No chest tenderness, No respiratory distress Cardiovascular Exam: regular rate/rhythm, normal heart sounds, normal peripheral pulses Gastrointestinal/Abdomen Exam: soft, normal bowel sounds, No tenderness Rectal Exam: not done Back Exam: normal inspection, normal range of motion, No CVA tenderness, No vertebral tenderness Extremity Exam: normal range of motion, pelvis stable, other (Punctate this given the lesion skin overlying left bicep without active bleeding.) Neurologic Exam: alert, oriented x 3, cooperative, 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 The QTc is 428. There is no evidence of acute ischemic changes on today's twelve- lead EKG.) Ordered Tests: Active Orders 24 hr Category Date Time Status EKG-ER Only STAT Care 01/20/24 21:17 Active IV Insertion STAT Care 01/20/24 21:17 Active Pulse Oximetry (ED) STAT Care 01/20/24 21:17 Active CBC W DIFF Stat Lab 01/20/24 21:30 Completed CMP Stat Lab 01/20/24 21:30 Completed MAGNESIUM Stat Lab 01/20/24 21:30 Completed TROPONIN Q4H Lab 01/20/24 21:30 Completed TROPONIN Q4H Lab 01/21/24 01:30 Ordered TROPONIN Q4H Lab 01/21/24 05:30 Ordered Lab/Rad Data: Laboratory Result Diagrams 01/20/24 21:30 01/20/24 21:30 Laboratory Results 01/20/24 01/20/24 01/20/24 Range/Units 21:30 21:30 21:30 WBC 7.3 (4.23-9.07) x10^3/uL RBC 5.28 (4.63-6.08) x10^6/uL Hgb 15.9 (13.7-17.5) g/dL Hct 45.5 (40.1-51.0) % MCV 86.2 (79.0-92.2) fL MCH 30.1 (25.7-32.2) pg MCHC 34.9 (32.3-36.5) g/dL RDW 12.3 (11.6-14.4) % Plt Count 215 (163-337) x10^3/uL MPV 9.0 L (9.4-12.4) fL Gran % 49.8 (34.0-67.9) % Immature Gran % (Auto) 0.3 (0.001-0.429) % Nucleat RBC Rel Count 0.0 (0.00-0.2) % Eos # (Auto) 0.28 (0.04-0.54) x10^3/uL Immature Gran # (Auto) 0.02 (0.001-0.031) x10^3u/L Absolute Lymphs (auto) 2.56 (1.32-3.57) x10^3/uL Absolute Monos (auto) 0.77 (0.30-0.82) x10^3/uL Absolute Nucleated RBC 0.00 (0.00-0.012) x10^3u/L Lymphocytes % 34.9 (21.8-53.1) % Monocytes % 10.5 (5.3-12.2) % Eosinophils % 3.8 (0.8-7.0) % Basophils % 0.7 (0.2-1.2) % Absolute Granulocytes 3.65 (1.78-5.38) x10^3/uL Basophils # 0.05 (0.01-0.08) x10^3/uL Sodium 140 (135-145) mmol/L Potassium 3.9 (3.5-5.1) mmol/L Chloride 104 (98-107) mmol/L Carbon Dioxide 24 (22-30) mmol/L Anion Gap 15.6 H (5-15) MEQ/L BUN 22 H (9-20) mg/dL Creatinine 1.74 H (0.66-1.25) mg/dL Estimated GFR 45.7 ML/MIN Glucose 105 (74-106) mg/dL Calcium 9.5 (8.4-10.2) mg/dL Magnesium 2.0 (1.6-2.3) mg/dL Total Bilirubin 1.00 (0.2-1.3) mg/dL AST 36 (17-59) U/L ALT 54 H (0-50) U/L Alkaline Phosphatase 67 (38-126) U/L Troponin I < 0.012 (0.000-0.033) ng/mL Serum Total Protein 7.4 (6.3-8.2) g/dL Albumin 4.5 (3.5-5.0) g/dL - Progress Progress: improved, re-examined Progress Note: 01/20/24 21:28 My medical decision making and the assignment of moderate complexity to this patient's medical issue today is based on review of the patient's past medical history, review of the patient's medication list, review of the patient drug allergy list, history present illness and physical findings on examination. The workup in this patient includes placement of intravenous line, twelve-lead EKG, troponin level, CBC, CMP, magnesium level. Differential diagnosis includes but is not limited to anxiety about health, hypertension, arrhythmia, electrolyte abnormality 01/20/24 22:02 I interpreted the patient's laboratory data results. Based on the laboratory data results, there are no acute, emergent medical issues. Counseled pt/family regarding: lab results, diagnosis, need for follow-up Medical Desision Making - Independent Historian Additional History obtained from: Spouse - Diagnostic Testing Diagnostic test were ordered, analyzed, and reviewed by me: Yes - Risk of complications Low Risk: Low risk of morbidity from additional dx testing or treatment - Departure Departure Disposition: Home Clinical Impression: Anxiety about health, Bleeding pigmented skin lesion Condition: Stable Critical Care Time: No Referrals: [place] GOFF [Primary Care Provider] - Follow up/PCP as directed Additional Instructions: Continue your medications as prescribed. Call your primary care provider tomorrow, 01/21/2024 to make arrangements for follow-up appointment to be evaluate d in the next 3 to 5 days. Keep the pressure dressing in place for 24 hours. May then remove and cover with a nonstick bandage and change daily until healed. When the pressure dressing is in place you may also apply ice pack to the area. When you remove the dressing in 24 hours, if there is still oozing/bleeding present, return to the emergency department for reassessment.
[2024-01-20 20:57] VITALS: RESP 18; TEMP 99
[2024-01-20 21:21] VITALS: O2SAT 95
[2024-01-20 21:33] LABS: Absolute Neutrophil Ct (ANC) 3.65 x10^3/uL (1.78-5.38); BASOPHIL % 0.7 % (0.2-1.2); Basophil (Absolute #) 0.05 x10^3/uL (0.01-0.08); Eosinophil % 3.8 % (0.8-7.0); Eosinophil (Absolute #) 0.28 x10^3/uL (0.04-0.54); Hematocrit 45.5 % (40.1-51.0); Hemoglobin 15.9 g/dL (13.7-17.5); IMMATURE GRAN # 0.02 x10^3u/L (0.001-0.031); IMMATURE GRAN % 0.3 % (0.001-0.429); Lymphocyte (Absolute #) 2.56 x10^3/uL (1.32-3.57); Lymphocytes % 34.9 % (21.8-53.1); Mean Cell Volume 86.2 fL (79.0-92.2); Mean Corpuscular Hemoglobin 30.1 pg (25.7-32.2); Mean Corpuscular Hgb Concent. 34.9 g/dL (32.3-36.5); Monocyte (Absolute #) 0.77 x10^3/uL (0.30-0.82); Monocytes % 10.5 % (5.3-12.2); Neutrophil % 49.8 % (34.0-67.9); Platelet Count 215 x10^3/uL (163-337); Red Blood Count 5.28 x10^6/uL (4.63-6.08); Red Cell Distribution Width 12.3 % (11.6-14.4); White Blood Count 7.3 x10^3/uL (4.23-9.07)
[2024-01-20 21:47] LABS: ALBUMIN 4.5 g/dL (3.5-5.0); ANION GAP 15.6 MEQ/L (5-15); Calcium 9.5 mg/dL (8.4-10.2); Creatinine 1 1.74 mg/dL (0.66-1.25); EST GLOMERULAR FILTRATION RATE 45.7 ML/MIN; Potassium 3.9 mmol/L (3.5-5.1); Total Protein 7.4 g/dL (6.3-8.2)
[2024-01-20 22:11] VITALS: BP 122/76; PULSE 62
== END 2024-01-20 22:28 | disposition home or self-care (01) ==
LOC: ED 20:48
DX: L98.8 Other specified disorders of the skin and subcutaneous tissue (principal); F45.9 Somatoform disorder, unspecified; I12.9 Hypertensive chronic kidney disease with stage 1 through stage 4 chronic kidney disease, or unspecified chronic kidney disease; N18.9 Chronic kidney disease, unspecified; E78.5 Hyperlipidemia, unspecified; Z79.899 Other long term (current) drug therapy
CPT/HCPCS: 36000; 36415; 80053; 83735; 84484; 85025; 93005; 94760; 99284